=== PATIENT | male | born 1945 | race Caucasian/White ===

== ENCOUNTER 2021-08-09 11:44 | Emergency (ER) | payer MEDICARE, OTHER ==
[~2021-08-09] VITALS: Ht 172.7 cm; Wt 70.3 kg
[2021-08-09 13:38] VITALS: BP 124/76
[2021-08-09] MEDS ORDERED: CEPH-509 PO (15:06)
== END 2021-08-09 15:06 | disposition home or self-care (01) ==
LOC: ER 11:44
DX: L03.115 Cellulitis of right lower limb (principal); I10 Essential (primary) hypertension; E78.5 Hyperlipidemia, unspecified; Z90.89 Acquired absence of other organs; Z79.899 Other long term (current) drug therapy; Z88.5 Allergy status to narcotic agent
CPT/HCPCS: 73630